=== PATIENT | female | born 1985 | race Two or more races ===

== ENCOUNTER 2024-11-30 19:06 | Inpatient (IN) | payer BC ==
[~2024-11-30] VITALS: Ht 167.6 cm; Wt 75.2 kg
[2024-11-30 20:09] LABS: BASOPHILS # (AUTO) 0.1 X10'3 (0-0.2); BASOPHILS % (AUTO) 0.6 % (0-1); EOSINOPHILS # (AUTO) 0.1 X10'3 (0-0.9); EOSINOPHILS % (AUTO) 1.2 % (0-6); HEMATOCRIT 36.4 % (35.0-45.0); HEMOGLOBIN 12.2 g/dl (12.0-16.0); MEAN CORPUSCULAR HEMOGLOBIN 31.8 PG (27.0-31.0); MEAN CORPUSCULAR HGB CONC 33.4 g/dL (33.0-36.5); MEAN CORPUSCULAR VOLUME 95.3 FL (78-98); MEAN PLATELET VOLUME 7.5 FL (7.4-10.4); MONOCYTES # (AUTO) 1.2 X10'3 (0-0.9); MONOCYTES % (AUTO) 10.9 % (2-12); NEUTROPHILS # (AUTO) 7.7 X10'3 (1.8-7.7); NEUTROPHILS % (AUTO) 69.3 % (42-75); PLATELET COUNT 295 X10'3 (140-440); RED BLOOD COUNT 3.82 X10'6 (4.20-5.60); RED CELL DISTRIBUTION WIDTH 14.2 % (11.5-14.5); WHITE BLOOD COUNT 11.1 X10'3 (4.5-11.0)
[2024-11-30 20:31] LABS: ALANINE AMINOTRANSFERASE 19 U/L (12-78); ALBUMIN 3.5 G/DL (3.4-5.0); ALBUMIN/GLOBULIN RATIO 0.9 (1.1-1.5); ALKALINE PHOSPHATASE 51 IU/L (46-116); ANION GAP 9 (8-16); ASPARTATE AMINO TRANSFERASE 14 U/L (10-37); BILIRUBIN,TOTAL 0.7 MG/DL (0.1-1.0); BLOOD UREA NITROGEN 9 MG/DL (7-18); BUN/CREATININE RATIO 15.3 (10.0-20.0); CALCIUM 8.6 MG/DL (8.5-10.1); CHLORIDE 104 MMOL/L (99-107); CREATININE 0.59 MG/DL (0.40-0.90); GLUCOSE 93 MG/DL (70-104); LIPASE 26 U/L (16-77); POTASSIUM 3.9 MMOL/L (3.5-5.1); SODIUM 142 MMOL/L (135-145); TOTAL CARBON DIOXIDE 28.6 MMOL/L (24-32); TOTAL PROTEIN 7.3 G/DL (6.4-8.2); eCRCL 117 ML/MIN; eGFR > 90 ML/MIN
--- NOTE | 2024-11-30 22:11 | Physician Documentation ---
History of Present Illness ~ Chief Complaint: Abdominal Pain w/vomiting Stated Complaint: ABDOMINAL PAIN Time Seen by MD: 22:03 HPI Patient is Seen today with complaints of right upper quadrant abdominal pain. Patient has history of gallstones diagnosed just a few days ago. Patient states she is having significant pain and is trying to get into see a general surgeon. Patient denies any fevers or chills or body aches. She has no other concern or complaint at this time. Medication Reconciliation Allergies: Coded Allergies: No Known Allergies (Unverified , 11/30/24) Review of Systems Constitutional: Denies: chills, fever, weakness Eyes: Denies: pain, blurred vision ENT: Denies: ear pain, nose pain, throat pain, mouth pain Respiratory: Denies: cough, shortness of breath Cardiovascular: Denies: chest pain, palpitations Gastrointestinal: Denies: abdominal pain, nausea, vomiting Genitourinary: Denies: burning, dysuria Female Genitalia: Denies: vaginal discharge, pelvic pain Neurological: Denies: headache, dizziness Musculoskeletal: Denies: pain, swelling Integumentary: Denies: rash, lesions Allergic/Immunologic: Denies: hives, itching Hematologic/Lymphatic: Denies: no symptoms reported Psychiatric: Denies: depression, anxiety Physical Exam Vital Signs: Temperature: 98.5, Source: Temporal, Heart Rate: 70, Respiratory Rate: 18, BP: 106/63, Pulse Oximetry: 99, Weight: 75.150 Physical Exam General: Awake and Alert, no acute distress. HEENT: Conjunctiva pink, Sclera clear, Mucus Membranes moist. Neck: Supple without masses and tenderness. Resp: Unlabored. Lungs clear to auscultation bilaterally. Heart: Regular Rate and rhythm, normal S1 and S2 without murmur, rub or gallop. Abdomen: Abdomen is soft, nondistended, patient has significant tenderness to palpation of the right upper quadrant only. Rebound tenderness is negative. Patient has normoactive bowel sounds in all four quadrants. Extremities: No cyanosis,clubbing or edema. Skin: Warm and Dry. Progress Progress Note Jose reassess patient at 2:00 a.m. her pain has mostly resolved she still has some tenderness on exam. We will plan to give her IV fluids antibiotics and watch her until morning I reassessed the patient at 5:30 a.m. she is still remarkably tender and has positive Hu's sign. 7:00 a.m. discussed case with Dr. Blunt general surgery who plans to evaluate the patient Results/Orders Reviewed/noted all lab results: Yes Results/Orders Medications Received in ER Medications (Trade) Dose Ordered Sig/Omer Route PRN Reason Start Time Stop Time Status Last Admin Dose Admin Sodium Chloride 1,000 ml @ 1,000 mls/hr ONCE ONCE IV 12/01/24 02:10 12/01/24 03:09 DC 12/01/24 02:36 1,000 MLS/HR Ceftriaxone Sodium/Dextrose 50 ml @ 100 mls/hr ONCE ONCE IV 12/01/24 02:10 12/01/24 02:39 DC 12/01/24 02:42 100 MLS/HR Metronidazole/ Sodium Chloride 100 ml @ 100 mls/hr ONCE ONCE IV 12/01/24 02:30 12/01/24 03:29 DC 12/01/24 03:15 100 MLS/HR (Zofran 4mg/2ml vial) 4 mg ONCE ONCE IM 12/01/24 03:10 12/01/24 03:13 DC 12/01/24 03:14 4 MG Vital Signs 11/30/24 11/30/24 11/30/24 12/01/24 19:33 22:17 22:37 00:01 Temp 98.5 Pulse 70 Resp 18 14 16 16 B/P (MAP) 106/63 Pulse Ox 99 12/01/24 12/01/24 12/01/24 12/01/24 00:04 00:10 03:54 03:55 Pulse 55 53 Resp 16 16 16 16 B/P (MAP) 96/53 (67) 95/57 (70) Pulse Ox 100 99 O2 Flow Rate 0 0 12/01/24 07:00 Pulse 70 Resp 14 B/P (MAP) 84/54 (64) Pulse Ox 99 Laboratory Tests Test 11/30/24 19:59 11/30/24 22:45 White Blood Count 11.1 H Red Blood Count 3.82 L Hemoglobin 12.2 Hematocrit 36.4 Mean Corpuscular Volume 95.3 Mean Corpuscular Hemoglobin 31.8 H Mean Corpuscular Hemoglobin Concent 33.4 Red Cell Distribution Width 14.2 Platelet Count 295 Mean Platelet Volume 7.5 Neutrophils (%) (Auto) 69.3 Lymphocytes (%) (Auto) 18.0 L Monocytes (%) (Auto) 10.9 Eosinophils (%) (Auto) 1.2 Basophils (%) (Auto) 0.6 Neutrophils # (Auto) 7.7 Lymphocytes # (Auto) 2.0 Monocytes # (Auto) 1.2 H Eosinophils # (Auto) 0.1 Basophils # (Auto) 0.1 CBC Comment Sodium Level 142 Potassium Level 3.9 Chloride Level 104 Carbon Dioxide Level 28.6 Anion Gap 9 Blood Urea Nitrogen 9 Creatinine 0.59 Estimated GFR/1.73 m2 > 90 BUN/Creatinine Ratio 15.3 Glucose Level 93 Calcium Level 8.6 Total Bilirubin 0.7 Aspartate Amino Transf (AST/SGOT) 14 Alanine Aminotransferase (ALT/SGPT) 19 Alkaline Phosphatase 51 Total Protein 7.3 Albumin 3.5 Globulin 3.8 Albumin/Globulin Ratio 0.9 L Lipase 26 Chemistry Comments Urine Specimen Description Non-specified Urine Color Yellow Urine Clarity Cloudy Urine pH 6.0 Urine Specific [place] 1.020 Urine Protein Trace Urine Glucose (UA) Negative Urine Ketones Trace H Urine Occult Blood Negative Urine Nitrite Positive H Urine Bilirubin Negative Urine Urobilinogen 4.0 H Urine Leukocyte Esterase Small H Urine RBC None seen Urine WBC 10-20 H Urine Squamous Epithelial Cells Few Urine Bacteria 4+ Urine Culture Indicated Indicated Volume Urine Centrifuged 10 ml Urine HCG, Qualitative Negative Urine Comment Microbiology Date/Time Source Procedure Growth Status 11/30/24 23:07 Urine Nonspecified Urine Culture - Preliminary Culture received. Resulted Medical Decision Making Findings Patient is Seen today with complaints of right upper quadrant abdominal pain. Patient has history of gallstones diagnosed just a few days ago. Patient states she is having significant pain and is trying to get into see a general surgeon. Patient denies any fevers or chills or body aches. She has no other concern or complaint at this time. Patient was given Zofran ODT 8 mg in the ED tonight, as well as [place] 10/325 mg tablets one tablet by mouth in the ED tonight. Prescription for the same were sent to patient's pharmacy to be taken as directed. Patient will follow up with general surgeon and make an appointment for eval and consult as soon as possible. Patient will return to ED with any worsening, concerning or changing symptoms. I gave patient explicit instructions to return to the ED with any signs of fever or uncontrolled pain for re-evaluation. Patient voiced understanding. Departure Disposition: ADMITTED INPATIENT Admitted to Inpatient Unit: to surgeon Impression: Primary Impression: Cholecystitis Condition: Improved Referrals: NO PRIMARY CARE PROVIDER (PCP) Additional Comment Transfer of Care: From Dr. Pedersen to Dr. Villarreal at 0700/ Additional Comment Care of the patient transferred to [place] from Dr. Pedersen. Patient's pain has persisted. Patient will be admitted for intractable abdominal pain and evaluated for possible cholecystectomy. Case discussed with our hospitalist Dr. Morin. MD Cherelle Signature Scribe Signature: trevon Attestation: CINTHIA Camacho November 30, 2024 22:11 ABBY PEDERSEN MD December 01, 2024 02:11 ERICK VILLARREAL MD December 01, 2024 07:48
[2024-11-30] MEDS: ondansetron 4mg rapidly disintigrating tab PO STA (22:37)
[2024-11-30] MEDS: HYDROcodone/acetaminophen 10/325mg tab PO STA (22:37)
[2024-11-30 23:02] LABS: BILIRUBIN,URINE NEGATIVE (Neg); CLARITY,URINE CLOUDY (Clear); COLOR,URINE YELLOW (Yellow); GLUCOSE, URINE NEGATIVE (Neg); KETONES,URINE TRACE mg/dl (Neg); LEUKOCYTE ESTERASE ,URINE SMALL (Neg); NITRITES, URINE POSITIVE (Neg); OCCULT BLOOD,URINE NEGATIVE (Neg); PROTEIN,URINE TRACE mg/dl (Neg)
[2024-11-30 23:03] LABS: URINE HCG NEGATIVE (NEG)
[2024-11-30 23:06] LABS: UA COLLECTION TYPE NON-SPECIFIED
[2024-11-30 23:13] LABS: BACTERIA,URINE 4+ /HPF (Neg); RBC,URINE NONE SEEN /HPF (0-2); SQUAMOUS EPITHELIAL CELL,UR FEW /LPF (FEW)
[2024-12-01] VITALS (17 sets, daily range): BP systolic 77–115; BP diastolic 44–70; PULSE 51–77; RESP 15–20; TEMP 97.3–98.1; O2SAT 91–99
[2024-12-01] MEDS: ketorolac trometh 15mg/ml vial 15 MG/ML ML IV ONE (00:01)
[2024-12-01] MEDS: metroNIDAZOLE-Flagyl 500mg/NS 100 ML IV ONE ×2 (02:31→03:15)
[2024-12-01] MEDS: normal saline 1000ml 1,000 ML IV ONE ×2 (02:36→15:32)
[2024-12-01] MEDS: CefTRIAXone 2gm/D5W 50ml BAG 50 ML IV ONE (02:42)
--- NOTE | 2024-12-01 02:54 | RADIOLOGY REPORT ---
Clinical History RUQ abd pain Comparison None Technique: using real time ultrasound equipment, limited abdominal ultrasound examination was perform ed over the right upper quadrant. Without Contrast SRINIVASAN HERBERT, [id number] FINDINGS: Liver measures 15.5 cm long axis and is unremarkable sonographically. Portal vein has normal hepatopedal flow. Pancreas is unremarkable on this limited evaluation. Gallbladder wall is upper limits of normal in thickness at 3.2 mm with possible trace pericholecystic fluid. There are multiple gallstones in the fundus of the gallbladder. Sonographic Hu's sign is reported positive. Common bile duct is normal at 3.9 mm. Right kidney measures 10.76 cm long axis and is unremarkable sonographically. IMPRESSION: 1. Distended gallbladder with slightly thickened wall and possible trace pericholecystic fluid assoc iated with cholelithiasis and positive sonographic Hu's sign. Cholecystitis should be considered , recommend follow-up HIDA scan and/or MRCP as clinically indicated. 2. Normal CBD of 3.9 mm This report was electronically signed by Ha Nieto MD on 12/01/2024 2:50:46 AM.
[2024-12-01] MEDS: ondansetron/PF 4mg/2ml inj IM ONE (03:14)
[2024-12-01] MEDS ORDERED: magnesium hydroxide 30ml (MOM) UD suspension PO PRN (07:45)
[2024-12-01] MEDS ORDERED: potassium Cl 40MEQ/1/2NS 520ml 520 ML IV PRN (07:45)
[2024-12-01] MEDS ORDERED: potassium Cl 20 mEq SR tablet PO PRN ×2 (07:45)
[2024-12-01] MEDS ORDERED: mag hydrox/Alum hydrox/simeth 30ml oral suspension PO PRN (07:45)
[2024-12-01] MEDS ORDERED: HYDROmorphone 1 mg/ml syringe IV PRN (07:45)
[2024-12-01] MEDS ORDERED: acetaminophen 325mg tablet PO PRN (07:45)
[2024-12-01] MEDS ORDERED: magnesium sulf-water 2g/50mL 50 ML IV PRN (07:45)
[2024-12-01] MEDS ORDERED: magnesium sulf-water 4G/100mL 100 ML IV PRN (07:45)
[2024-12-01] MEDS: K and/or MAG REPLACEMENT MC SCH (08:00)
[2024-12-01] MEDS: docusate sod 100mg capsule PO SCH (08:00)
--- NOTE | 2024-12-01 08:23 | HISTORY AND PHYSICAL ---
History & Physical Providers to CC ~ History of Present Illness Reason for Admit\Complaint: Symptomatic cholelithiasis\ UTI- sepsis evaluation History of Present Illness This is a 39-year-old female who has a three day history of right upper quadrant abdominal pain has been having difficulty eating and drinking fluids and has had a couple episodes of emesis the patient does complain of chills and night sweats however denies for is unsure if she has had a fever. The patient also complains of low back pain which is in a bandlike distribution and suprapubic cramping however denies any increased urinary frequency or dysuria. The patient has a history of gallstones diagnosed a couple of days ago and this is confirmed on abdominal ultrasound which demonstrates a distended gallbladder with multiple stones found in the fundus of the gallbladder and also slight thickening of the wall and possible trace pericholecystic fluid. The patient also has a UTI. Allergies: Coded Allergies: No Known Allergies (Unverified , 11/30/24) Past Medical History Past Medical History Hypothyroidism Past Surgical History Surgical History Comment No prior surgeries Family History Family History: FH: diabetes mellitus Maternal grandmother Maternal grandfather FH: hypertension FATHER FH: kidney disease Paternal grandmother Past Social History Social History Comment Patient denes history of smoking, nor any illicit drug use and drinks alcohol socially. Full Code Status ROS ROS Except for positives in the HPI the rest of the 14 point review systems is negative Exam Vitals: Vital Signs Date Time Temp Pulse Resp B/P (MAP) Pulse Ox O2 Delivery O2 Flow Rate FiO2 12/01/24 07:00 70 14 84/54 (64) 99 12/01/24 03:55 0 11/30/24 19:33 98.5 General: Gen. No acute distress alert and oriented 4 Lungs clear to ascultation bilaterally, no wheezes rales or rhonchi appreciated Heart normal sinus rhythm no murmurs rubs or clicks noted Abdomen soft significant right upper quadrant tenderness with a positive Hu's sign, mild left upper quadrant tenderness and moderate left lower quadrant tenderness Lower extremities no clubbing cyanosis, nor edema appreciated bilaterally Diagnostic Data Last Recorded Lab Results: 11/30/24195811/30/241958 Advance Care Planning Advanced Care plannin - 30 Minutes Problems: (1) Cholecystitis Status: Acute Additional Plan # symptomatic cholelithiasis with possible cholecystitis- IV Zosyn is ordered NPO Per documentation Dr. Garcia spoke with on-call surgeon Dr. Blunt who will evaluate the patient I have also texted Dr. Blunt to confirm this fact. # UTI- with low-back pain and suprapubic pressure Urine culture sent Noncontrast CT scan of the abdomen and pelvis is ordered to evaluate for possible kidney stones/ pyelonephritis Received IV Rocephin and ED and IV Zosyn is ordered # possible sepsis- Workup is in progress Blood cultures ordered Lactic acid and procalcitonin IV fluids administered # hypothyroidism- Awaiting med reconciliation Takes 75 mcg daily per patient # DVT prophylaxis SCDs I spent a total of 17 minutes on reviewing various resuscitative measures/ ACP with the patient at the time of admission. The patient has decided on a full code status. Date of Service: December 01, 2024 Billing Provider: ANTONIA COYNE DO Common Visit Codes: [id number] INP/OBS CARE(HIGH) ANTONIA COYNE DO December 01, 2024 08:23
--- NOTE | 2024-12-01 09:00 | PROGRESS NOTE ---
Progress Note ID Providers to CC ~ Progress Note Progress Note: PT SEEN AND EXAMINED-FINDINGS CONSISTENT WITH CHOLELITHIASIS-? CHOLECYSTITIS-PT NEEDS ROBO SOILA-POSSIBLE OPEN-DISCUSSED PROCEDURE INCLUDING RISKS/BENEFITS/ALTERNATIVES RENE WHITFIELD MD December 01, 2024 09:00
[2024-12-01] MEDS: normal saline 1000ml 1,000 ML IV SCH (09:16)
[2024-12-01] MEDS: HYDROmorphone inj. 0.5 MG/0.5 ML DISP.SYRIN IV PRN (09:16)
[2024-12-01] MEDS: piperacillin/tazo 4.5gm/100ml 100 ML IV SCH (09:16)
[2024-12-01] MEDS ORDERED: BUPIVAcaine 2.5mg/ml inj 50ml vial (contains preservative) ONE (09:46)
[2024-12-01] MEDS ORDERED: sevoflurane 250ml liquid IH ONE (10:06)
[2024-12-01] MEDS ORDERED: labetalol 20mg/4ml (5mg/ml) syringe IV PRN (10:10)
[2024-12-01] MEDS ORDERED: meperidine/PF 25mg/ml syringe IV PRN (10:10)
[2024-12-01] MEDS ORDERED: HYDROmorphone/PF 0.2 MG/ML SYRINGE IV PRN ×2 (10:10)
[2024-12-01] MEDS ORDERED: ondansetron/PF 4mg/2ml inj IV PRN ×2 (10:10→11:30)
[2024-12-01] MEDS ORDERED: proCHLORperazine 10 MG/2 ml inj IV PRN (10:10)
[2024-12-01] MEDS ORDERED: hydrALAZINE 20mg/ml inj. IV PRN (10:10)
[2024-12-01] MEDS: ringers solution, lacted 1,000 ML IV SCH (10:10)
[2024-12-01] MEDS ORDERED: morphine 4 MG/ML inj SYRINge IV PRN (10:10)
[2024-12-01] MEDS ORDERED: midazolam 1 mg/ML 2ml injection ONE (10:15)
[2024-12-01] MEDS ORDERED: LIDOcaine 2% (20mg/ml) 5ml vial ONE (10:30)
[2024-12-01] MEDS ORDERED: fentaNYL /PF 50mcg/ml 5ml ampule ONE (10:30)
[2024-12-01] MEDS ORDERED: propofol inj 20 ML IV ONE (10:30)
[2024-12-01] MEDS ORDERED: dexamethasone sod phosphate 4mg/ml inj. ONE (10:30)
[2024-12-01] MEDS ORDERED: ondansetron/PF 4mg/2ml inj ONE (10:30)
[2024-12-01] MEDS ORDERED: rocuronium 10mg/ml inj IV ONE (10:30)
[2024-12-01] MEDS: BUPIVAcaine/PF 2.5 mg/ml (0.25%) 30ml vial IJ ONE (10:43)
--- NOTE | 2024-12-01 11:26 | OPERATIVE REPORT ---
Operative Report Providers to CC ~ Date of Procedure: December 01, 2024 Pre-Operative Diagnosis: billiary colic, possible cholecystitis Post-Operative Diagnosis SAME as PRE-Op Procedure Performed olivia bautista Surgeon: edda Director Of Quantitative Research none Anesthesiologist: Brielle Martinez Type of Anesthesia: General Findings: cholecystitis Estimated Blood Loss: min Specimen Removed: RENE Hammond MD December 01, 2024 11:26
[2024-12-01] MEDS ORDERED: HYDROcodone/acetaminophen 5mg/325mg tablet PO PRN (11:30)
[2024-12-01] MEDS ORDERED: naloxone 0.4 mg/ml inj IV PRN (11:30)
[2024-12-01] MEDS: acetaminophen 1,000mg/100ml IV 100 ML IV PRN (11:41)
[2024-12-01] MEDS: morphine 2 MG/ML inj. syringe IV PRN (11:45)
[2024-12-01] MEDS: ketorolac trometh 15mg/ml vial 15 MG/ML ML IV PRN (11:46)
[2024-12-01] MEDS: HYDROmorphone inj. 0.5 MG/0.5 ML DISP.SYRIN IV ONE (12:32)
[2024-12-01] MEDS: ondansetron/PF 4mg/2ml inj IV PRN (13:18)
[2024-12-01] MEDS ORDERED: TIRZ10PE (16:13)
[2024-12-01] MEDS ORDERED: LEVO75TA7 PO (16:13)
--- NOTE | 2024-12-01 17:22 | RADIOLOGY REPORT ---
Exam: CT CT ABDOMEN PELVIS History: uti with back pain and LLQ ab tenderness Comparison Study: None TECHNIQUE: Multidetector CT of the abdomen and pelvis was performed from lung bases to pubic symphysi s. Imaging was performed without IV contrast. Axial, coronal, and sagittal multiplanar reformats were obtained from the axial data set by the technologist. RADIATION DOSE: DLP 989.29 mGy.cm; CTDI vol 19.08 mGy. Findings: Lungs: Bibasilar atelectasis. Heart: No cardiomegaly or pericardial effusion. Liver: Unremarkable. Gallbladder: Cholecystectomy. Spleen: Unremarkable Pancreas: Unremarkable Adrenals: Unremarkable Kidneys: Unremarkable GI tract: Mild wall thickening and inflammatory changes adjacent to the hepatic flexure. : Unremarkable. No nephroureterolithiasis. Vasculature: Unremarkable Lymphadenopathy: Absent Peritoneum: Trace pelvic ascites. Mild pneumoperitoneum. Musculoskeletal: Unremarkable Soft tissues: Sequela of recent surgery. Impression: 1. Sequela of recent surgery with mild pneumoperitoneum. 2. Mild wall thickening and inflammatory changes of the hepatic flexure. Correlate for colitis. 3. Trace pelvic ascites.
[2024-12-01] MEDS: lactobacillus rhamnosus 10,000 MMU CELLS/CAPSULE PO SCH (19:57)
[2024-12-02 02:00] VITALS: BP 84/47; PULSE 62; RESP 14; TEMP 97.9; O2SAT 98
[2024-12-02 05:52] LABS: BASOPHILS % (AUTO) 0.1 % (0-1); EOSINOPHILS % (AUTO) 0.1 % (0-6); HEMATOCRIT 31.4 % (35.0-45.0); HEMOGLOBIN 10.7 g/dl (12.0-16.0); LYMPHOCYTES # (AUTO) 1.2 X10'3 (1.1-4.8); LYMPHOCYTES % (AUTO) 13.2 % (21-51); MEAN CORPUSCULAR HEMOGLOBIN 32.6 PG (27.0-31.0); MEAN CORPUSCULAR HGB CONC 34.1 g/dL (33.0-36.5); MEAN CORPUSCULAR VOLUME 95.4 FL (78-98); MEAN PLATELET VOLUME 7.9 FL (7.4-10.4); MONOCYTES # (AUTO) 0.5 X10'3 (0-0.9); MONOCYTES % (AUTO) 5.6 % (2-12); NEUTROPHILS # (AUTO) 7.6 X10'3 (1.8-7.7); PLATELET COUNT 263 X10'3 (140-440); RED BLOOD COUNT 3.29 X10'6 (4.20-5.60); WHITE BLOOD COUNT 9.4 X10'3 (4.5-11.0)
[2024-12-02 06:00] VITALS: BP 91/53; PULSE 54; RESP 18; TEMP 96.8; O2SAT 99
[2024-12-02 06:17] LABS: ALANINE AMINOTRANSFERASE 24 U/L (12-78); ALBUMIN 2.5 G/DL (3.4-5.0); ALBUMIN/GLOBULIN RATIO 0.8 (1.1-1.5); ALKALINE PHOSPHATASE 42 IU/L (46-116); ANION GAP 9 (8-16); ASPARTATE AMINO TRANSFERASE 25 U/L (10-37); BILIRUBIN,TOTAL 0.6 MG/DL (0.1-1.0); BLOOD UREA NITROGEN 6 MG/DL (7-18); BUN/CREATININE RATIO 8.8 (10.0-20.0); CALCIUM 7.3 MG/DL (8.5-10.1); CHLORIDE 108 MMOL/L (99-107); CREATININE 0.68 MG/DL (0.40-0.90); GLUCOSE 107 MG/DL (70-104); MAGNESIUM 1.9 MG/DL (1.5-2.4); POTASSIUM 3.8 MMOL/L (3.5-5.1); SODIUM 143 MMOL/L (135-145); TOTAL CARBON DIOXIDE 26.1 MMOL/L (24-32); TOTAL PROTEIN 5.7 G/DL (6.4-8.2); eCRCL 102 ML/MIN; eGFR > 90 ML/MIN
[2024-12-02] MEDS: levoTHYROXINE 75mcg tablet PO SCH (07:30)
[2024-12-02 07:42] VITALS: RESP 16
[2024-12-02 10:00] VITALS: BP 96/62; PULSE 59; RESP 19; TEMP 97.4; O2SAT 99
--- NOTE | 2024-12-02 11:54 | PROGRESS NOTE ---
Progress Note ID Providers to CC ~ Progress Note Progress Note: slow progress/cont supportive care RENE WHITFIELD MD December 02, 2024 11:54
[2024-12-02 18:00] VITALS: BP 92/57; PULSE 60; RESP 18; TEMP 98.7; O2SAT 98
--- NOTE | 2024-12-02 19:08 | PROGRESS NOTE ---
Daily Progress Note Providers to CC ~ Antibiotic Timeout Antibiotic Ordered?: Yes Subjective The patient was dizzy today when she had up thus Dr. Blunt recommended the patient stay hospitalized an additional day- the patient otherwise is stable her blood pressure remains low however this is unchanged from yesterday- fluids are ordered Objective Vital Signs Date Time Temp Pulse Resp B/P (MAP) Pulse Ox O2 Delivery O2 Flow Rate FiO2 12/02/24 17:27 16 12/02/24 10:00 97.4 59 96/62 (73) 99 Room Air 12/01/24 03:55 0 Result Diagram: 12/02/2452712/02/24527 Gen. No acute distress alert and oriented 4 Lungs clear to ascultation bilaterally, no wheezes rales or rhonchi appreciated Heart normal sinus rhythm no murmurs rubs or clicks noted Abdomen soft [id number] right lower quadrant tenderness bowel sounds are normoactive Lower extremities no clubbing cyanosis, nor edema appreciated bilaterally Problem\Assessment\Plan Problems/Diagnosis: (1) Cholecystitis # symptomatic cholelithiasis with possible cholecystitis- Status post laparoscopic robotic appendectomy with surgeon Dr. Blunt Zosyn was discontinued the patient went to surgery yesterday # UTI- with low-back pain and suprapubic pressure Urine culture grew out pansensitive E coli start IV Rocephin Noncontrast CT scan of the abdomen and pelvis is unremarkable # hypotension sepsis ruled out IV normal saline at 250 cc an hour for 8 hours as ordered # hypothyroidism- Continue levothyroxine Disposition: Anticipate discharge in the a.m. Date of Service: December 02, 2024 Billing Provider: ANTONIA COYNE DO Common Visit Codes: [id number] INP/OBS CARE(HIGH) ANTONIA COYNE DO December 02, 2024 19:07
[2024-12-02] MEDS: CefTRIAXone/D5W-Rocephin 1gm 50 ML IV ONE (19:25)
[2024-12-02] MEDS: normal saline 1000ml 1,000 ML IV SCH (19:26)
[2024-12-02] MEDS: magnesium hydroxide 30ml (MOM) UD suspension PO SCH (20:48)
[2024-12-02 22:00] VITALS: BP 112/65; PULSE 85; RESP 18; TEMP 98.3; O2SAT 97
[2024-12-02] MEDS: LORazepam 0.5 MG tablet PO ONE (22:27)
[2024-12-03 06:00] VITALS: BP 94/57; PULSE 64; RESP 16; TEMP 97.9; O2SAT 96
[2024-12-03 06:09] LABS: BASOPHILS % (AUTO) 0.3 % (0-1); EOSINOPHILS # (AUTO) 0.1 X10'3 (0-0.9); EOSINOPHILS % (AUTO) 1.5 % (0-6); HEMATOCRIT 28.8 % (35.0-45.0); HEMOGLOBIN 9.6 g/dl (12.0-16.0); LYMPHOCYTES # (AUTO) 2.2 X10'3 (1.1-4.8); LYMPHOCYTES % (AUTO) 36.6 % (21-51); MEAN CORPUSCULAR HEMOGLOBIN 32.2 PG (27.0-31.0); MEAN CORPUSCULAR HGB CONC 33.2 g/dL (33.0-36.5); MEAN CORPUSCULAR VOLUME 96.8 FL (78-98); MEAN PLATELET VOLUME 7.9 FL (7.4-10.4); MONOCYTES # (AUTO) 0.4 X10'3 (0-0.9); MONOCYTES % (AUTO) 6.3 % (2-12); NEUTROPHILS # (AUTO) 3.4 X10'3 (1.8-7.7); NEUTROPHILS % (AUTO) 55.3 % (42-75); PLATELET COUNT 249 X10'3 (140-440); RED BLOOD COUNT 2.97 X10'6 (4.20-5.60); RED CELL DISTRIBUTION WIDTH 14.2 % (11.5-14.5); WHITE BLOOD COUNT 6.1 X10'3 (4.5-11.0)
[2024-12-03 06:17] LABS: ALANINE AMINOTRANSFERASE 22 U/L (12-78); ALBUMIN 2.2 G/DL (3.4-5.0); ALBUMIN/GLOBULIN RATIO 0.8 (1.1-1.5); ALKALINE PHOSPHATASE 37 IU/L (46-116); ANION GAP 5 (8-16); ASPARTATE AMINO TRANSFERASE 21 U/L (10-37); BILIRUBIN,TOTAL 0.3 MG/DL (0.1-1.0); BLOOD UREA NITROGEN 8 MG/DL (7-18); CALCIUM 7.3 MG/DL (8.5-10.1); CHLORIDE 114 MMOL/L (99-107); CREATININE 0.57 MG/DL (0.40-0.90); GLUCOSE 83 MG/DL (70-104); MAGNESIUM 2.3 MG/DL (1.5-2.4); SODIUM 146 MMOL/L (135-145); TOTAL CARBON DIOXIDE 27.3 MMOL/L (24-32); eCRCL 122 ML/MIN; eGFR > 90 ML/MIN
--- NOTE | 2024-12-03 06:35 | CONSULTATION ---
DATE OF CONSULTATION: 12/01/2024 DICTATING PHYSICIAN: Travis Blunt MD REASON FOR CONSULTATION: Evaluation for abdominal pain. HISTORY OF PRESENT ILLNESS: The patient is a 39-year-old female with history of hypothyroidism, intermittent abdominal pain, who over the course of the past few weeks developed persistent pain, presented to the ER for evaluation. Ultrasound revealed cholelithiasis and cholecystitis. Surgical evaluation is now requested. On further questioning, the patient with right upper quadrant pain. No history of peptic ulcer disease. PAST MEDICAL HISTORY: Hypothyroidism. PAST SURGICAL HISTORY: Unremarkable. HOME MEDICATIONS: See chart. ALLERGIES: None. SOCIAL HISTORY: No tobacco use. REVIEW OF SYSTEMS: See H and P. PHYSICAL EXAMINATION: GENERAL: Well-nourished female in minimal distress. VITAL SIGNS: Unremarkable. HEART: Regular rate and rhythm. LUNGS: Clear to auscultation. ABDOMEN: Shows right upper quadrant tenderness. EXTREMITIES: Unremarkable. NEUROLOGIC: Nonfocal. LABORATORY DATA: Include a WBC of 11, hematocrit of 36, platelet count is 295. Chemistry, LFTs are essentially unremarkable. IMAGING STUDIES: Ultrasound reveals cholelithiasis, question of cholecystitis. IMPRESSION: * Cholelithiasis, question of cholecystitis. * Hypothyroidism. PLAN: * Admit and hydrate. * IV antibiotics. * Robotic cholecystectomy. Travis Blunt MD TID: [id number] RECEIPT: [id number] KB/YOK
--- NOTE | 2024-12-03 06:38 | OPERATIVE REPORT ---
DATE OF SURGERY: 12/01/2024 DICTATING PHYSICIAN: Travis Blunt MD PREOPERATIVE DIAGNOSES: Acute cholelithiasis, cholecystitis. POSTOPERATIVE DIAGNOSES: Acute cholelithiasis, cholecystitis. PROCEDURE PERFORMED: Robotic cholecystectomy. SURGEON: Travis Blunt MD. ATTRACTIONS ASSOCIATE: None. ANESTHESIA: General/Dr. Martinez. DRAINS: None. INDICATIONS FOR OPERATION: A 39-year-old female with abdominal pain, found to have acute cholelithiasis, cholecystitis, taken to surgery for robotic cholecystectomy. INTRAOPERATIVE FINDINGS: Cholecystitis. DESCRIPTION OF PROCEDURE: The patient was placed supine on the operating table. After induction of general anesthesia and placement of endotracheal tube, the abdomen was prepped and draped. A subumbilical incision was then made and Jacek port placed using open technique. Pneumoperitoneum was begun by insufflation of CO2. Additional ports were placed in the left lower quadrant and right lateral abdomen. Robot was then brought to the field. Camera port docked. Camera placed, camera targeted. Additional ports were then docked and instruments placed. Abdomen was then explored. Omentum was immobilized off the underlying gallbladder. Gallbladder fundus was grasped and retracted cephalad. Cystic duct identified, isolated, ligated, clipped and divided the cystic artery. The gallbladder was mobilized off the gallbladder fossa using electrocautery. Hemostasis was found to be adequate. Robotic instruments were removed. Robot was undocked from the field. Gallbladder was placed in Endobag using laparoscope. Abdomen was copiously irrigated with large amount of antibiotic-containing solution. Ports were then removed under laparoscopic vision with no evidence of active bleeding. Final port and camera withdrawn. Gallbladder was removed. Wounds were closed in layers. Skin was closed with subcuticular stitch. Dressing was applied. The patient was transferred to recovery in stable condition after reversing from general anesthesia. Travis Blunt MD TID: [id number] RECEIPT: [id number] ELENI/PANCHITO/KIMBERLY
[2024-12-03 08:00] VITALS: RESP 16; O2SAT 96
[2024-12-03 09:14] LABS: % IRON SATURATION 22 % (11-46); IRON 56 UG/DL (49-151); TOTAL IRON BINDING CAPACITY 259 UG/DL (259-388)
[2024-12-03] MEDS: CefTRIAXone/D5W-Rocephin 1gm 50 ML IV SCH (10:06)
[2024-12-03] MEDS ORDERED: CEPH500C2 PO (10:22)
[2024-12-03 11:00] VITALS: BP 97/62; PULSE 61; RESP 18; TEMP 97; O2SAT 96
--- NOTE | 2024-12-03 17:54 | DISCHARGE SUMMARY ---
Discharge Summary Providers to CC ~ Discharge Summary Admission Diagnosis: billiary colic, possible cholecystitis Hospital Course DATE OF ADMISSION: 12/01/2024 DATE OF DISCHARGE: 12/03/2024 Discharge Diagnosis\Comment: Acute cholecystitis/cholelithiasis, E coli UTI, hypotension sepsis ruled out, hypothyroidism Operations\Procedures: Robotic laparoscopic cholecystectomy Consultants: Dr. Travis Blunt general surgeon Complications: None Condition on DC: Stable New Medications: Cephalexin Monohydrate (Cephalexin) 500 Mg Capsule 1 CAP PO Q8H for 3 Days, #9 CAP Continued Medications: Levothyroxine Sodium (Levothyroxine Sodium) 75 Mcg Tablet 1 TAB PO DAILY Discontinued Medications: Tirzepatide (Mounjaro) 10 Mg/0.5 Ml Pen.injctr Discharge Summary: I admitted the patient with the following HPI: This is a 39-year-old female who has a three day history of right upper quadrant abdominal pain has been having difficulty eating and drinking fluids and has had a couple episodes of emesis the patient does complain of chills and night sweats however denies for is unsure if she has had a fever. The patient also complains of low back pain which is in a bandlike distribution and suprapubic cramping however denies any increased urinary frequency or dysuria. The patient has a history of gallstones diagnosed a couple of days ago and this is confirmed on abdominal ultrasound whi ch demonstrates a distended gallbladder with multiple stones found in the fundus of the gallbladder and also slight thickening of the wall and possible trace pericholecystic fluid. The patient also has a UTI. The patient went for laparoscopic robotic cholecystectomy on the the patient was dizzy the following morning and has been hypotensive Dr. Blunt surgeon requested the patient remain hospitalized for an additional day and was reasonable the patient received IV fluids the patient has a UTI and the urine culture grew out pansensitive E coli, had obtained a CT scan of the abdomen and pelvis since the patient was experiencing right lower quadrant abdominal tenderness that was significant as well as low back pain that was and a band like presentation both present on admission and I was concerned the patient may have a kidney stone. The CT scan of the abdomen pelvis was unremarkable. The patient also had normocytic anemia which was likely a delusional in etiology since the patient received a significant amount of IV fluids. The patient felt ready to be discharged and was medically cleared to be discharged on 12/03/2024 The patient was seen and evaluated on day of discharge. Time spent on discharge 35 minutes *Problems/Diagnosis: (1) Cholecystitis Status: Acute Total Time Spent on D/C: > 30 Minutes Date of Service: December 03, 2024 Billing Provider: ANTONIA COYNE DO Common Visit Codes: [id number] DISCH DAY >30min ANTONIA COYNE DO December 03, 2024 17:53
--- NOTE | 2024-12-04 16:16 | PATHOLOGY REPORT ---
[facility] [address] [place] [address] SURGICAL PATHOLOGY REPORT CaseNumber: [id number] Surgeon:Travis Blunt M.D. CLINICAL INFORMATION CLINICAL INFORMATION: Not provided. DIAGNOSIS DIAGNOSIS: GALLBLADDER; ROBOTIC-ASSISTED LAPAROSCOPIC SOILA - CHOLELITHIASIS AND ACUTE CHOLECYSTITIS. MICROSCOPIC DESCRIPTION MICROSCOPIC DESCRIPTION: One slide is examined. Performed. (st) GROSS DESCRIPTION GROSS DESCRIPTION: Received in a container of formalin labeled with the patient's name, number, and " cholecyst" is a disrupted gallbladder which measures 10 cm long by 4 cm in diameter. The serosa is ro ughened, dull, and red-brown to casiano. The surgical bed is unremarkable. Sectioning reveals a small andre unt of bloody fluid and a 4 cm area of faceted yellow casiano stones which measure up to 1.5 cm. The muco sa is red, granular, and focally eroded; however, a discrete mass lesion is not identified. The wall of the gallbladder measures up to 0.9 cm thick. Is Architect sections of the neck and wall of the g allbladder are submitted as A1.The time at which the specimen was removed was 1107. The time at which the specimen was placed in formalin was 1141. Electronically signed by: Arsalan Camacho M.D. 12/04/2024 3:49:00 PM
== END 2024-12-03 12:54 | disposition home or self-care (01) | DRG 418 ==
LOC: ER 19:07 → ED HOLD 12-01 07:53 → SUR 3N 12-01 12:44
PROVIDERS: ADMIT Family Medicine; ATTEND Family Medicine
PROC: 8E0W4CZ Robotic Assisted Procedure of Trunk Region, Percutaneous Endoscopic Approach (ICD-10-PCS; 2024-12-01)
PROC: 0FT44ZZ Resection of Gallbladder, Percutaneous Endoscopic Approach (ICD-10-PCS; principal; 2024-12-01 10:06)
DX: K80.00 Calculus of gallbladder with acute cholecystitis without obstruction (principal); N39.0 Urinary tract infection, site not specified; M54.50 Low back pain, unspecified; E03.9 Hypothyroidism, unspecified; B96.20 Unspecified Escherichia coli [E. coli] as the cause of diseases classified elsewhere; D64.9 Anemia, unspecified; Z82.49 Family history of ischemic heart disease and other diseases of the circulatory system; Z83.3 Family history of diabetes mellitus; Z87.891 Personal history of nicotine dependence
CPT/HCPCS: 99285; Z7506; Z7508; 36415; 74176; 76700; 80053; 81001; 81025; 82948; 83540; 83550; 83605; 83690; 83735; 84145; 85025; 86885; 86900; 86901; 87040; 87077; 87081; 87088; 87186; A4215; A4618; A4624; A6402; A7000; G0378; J0131; J0696; J1100; J1171; J1885; J2003; J2250; J2270; J2405; J2543; J2704; J2710; J3010; J3490; J7030; J7120